=== PATIENT | male | born 1980 | race Two or more races ===

== ENCOUNTER 2017-06-30 10:13 | Emergency (ER) | payer SELFPAY ==
[~2017-06-30] VITALS: Ht 172.7 cm; Wt 76.7 kg
--- NOTE | 2017-06-30 10:18 | NUR ---
PT ARRIVED TO [facility]B [facility]IA [facility] FROM [facility] WITH CHIEF C/O CHEST PAIN LEVEL 7. PT HAS SEVERE TREMORS ON BOTH UPPER AND LOWER EXTREMETIES. PLACED ON MONITOR WITH HR 118. SINUS TACHYCARDIA. SBP 161/65, 98%ON RA. NO APPARENT RESPIRATORY DISTRESS. SEEN AND EVALUATED BY .
--- NOTE | 2017-06-30 10:20 | NUR ---
IV ACCESS G20 STARTED ON LEFT HAND AND BLOOD DRAWN FOR LAB. STARTED IVF NS ORDERED.
[2017-06-30] MEDS ORDERED: [UNRECOGNIZED DRUG - REMARK] (10:23)
[2017-06-30] MEDS ORDERED: [UNRECOGNIZED DRUG - REMARK] (10:23)
[2017-06-30] MEDS ORDERED: [UNRECOGNIZED DRUG - REMARK] (10:23)
--- NOTE | 2017-06-30 10:29 | NUR ---
MEDICATED WITH LORAZEPAM 1MG SLOW IVP ORDERED BECAUSE PT HAS A LOT OF TREMORS AND IMPOSSIBLE TO PERFORM AN EKG.
[2017-06-30] MEDS ORDERED: IV NORMAL SALINE 1000 ML BAG IV ONE (10:30)
[2017-06-30] MEDS ORDERED: LORAZEPAM 2 MG/1 ML VIAL IV ONE (10:30)
[2017-06-30 10:36] LABS: BASOPHILS % (AUTO) 0.3 % (0.0-2.0); EOSINOPHILS # (AUTO) 0.1 K/uL (0.0-0.7); EOSINOPHILS % (AUTO) 0.7 % (0.0-7.0); HEMATOCRIT 45.9 % (36.7-47.1); HEMOGLOBIN 15.8 g/dL (12.5-16.3); LYMPHOCYTES # (AUTO) 2.8 K/uL (20.0-40.0); LYMPHOCYTES % (AUTO) 35.2 % (20.5-51.5); MEAN CORPUSCULAR HGB CONC 34 g/dL (32.5-36.3); MEAN CORPUSCULAR VOLUME 87.1 fL (73.0-96.2); MONOCYTES # (AUTO) 0.5 K/uL (2.0-10.0); MONOCYTES % (AUTO) 5.6 % (0.0-11.0); NEUTROPHILS # (AUTO) 4.7 K/uL (1.8-8.9); NEUTROPHILS % (AUTO) 58.2 % (38.5-71.5); PLATELET COUNT (AUTO) 238 K/uL (152-348); RED BLOOD CELL COUNT(AUTO) 5.27 MIL/uL (4.06-5.63); WHITE BLOOD COUNT (AUTO) 8.1 K/uL (3.6-10.2)
[2017-06-30 10:45] LABS: POTASSIUM 3.8 mmol/L (3.5-5.1)
[2017-06-30 10:50] LABS: BILIRUBIN,DIRECT 0.1 mg/dL (0.0-0.2); BILIRUBIN,TOTAL 0.5 mg/dL (0.2-1.0); TOTAL PROTEIN, SERUM 8.1 g/dL (6.4-8.2)
[2017-06-30] MEDS ORDERED: LORAZEPAM 2 MG/1 ML VIAL ONE (10:59)
--- NOTE | 2017-06-30 10:59 | NUR ---
PT'S TREMORS SUBSIDED A LITTLE AFTER ATIVAN 1MG GIVEN. EKG DONE AT THIS TIME.
[2017-06-30] MEDS ORDERED: ACETAMINOPHEN ES 500 MG TABLET PO ONE (12:30)
--- NOTE | 2017-06-30 12:33 | NUR ---
PT C/O OF HEADACHE LEVEL6. MEDICATED WITH ACETAMENOPHEN 500MG ES, 2 TABS PO ORDERED. PT STATED THAT HIS CHEST PAINS IS RELIEVED.
--- NOTE | 2017-06-30 12:45 | NUR ---
PT HAD SOME TURKEY SANDWICH AND APPLE JUICE, TOLERATED WELL.
[2017-06-30] MEDS ORDERED: ACETAMINOPHEN ES 500 MG TABLET ONE (12:51)
[2017-06-30 13:00] VITALS: BP 143/51
--- NOTE | 2017-06-30 13:00 | NUR ---
DISCHARGE INSTRUCTION GIVEN TO PT WITH GOOD UNDERSTANDING. CHEST PAIN AND HEADACHE IS GONE.
--- NOTE | 2017-06-30 13:15 | NUR ---
DISCHARGED PT VIA WHEELCHAIR ACCOMPANIED BY A CAREGIVER. CHEST PAIN-0 AND WILSON-0. VSS. CONDITION STABLE. BELONGINGS SENT HOME WITH PATIENT.
== END 2017-06-30 13:15 | disposition home or self-care (01) ==
LOC: ER 10:13
DX: S09.90XA Unspecified injury of head, initial encounter (principal); R07.9 Chest pain, unspecified; X58.XXXA Exposure to other specified factors, initial encounter; Y93.89 Activity, other specified; Y92.89 Other specified places as the place of occurrence of the external cause; Y99.8 Other external cause status
CPT/HCPCS: 36415; 70030-TC; 71045; 85025; 85730; 93005; A4663; A9150; J2060; J7030